=== PATIENT | male | born 2000 | race Caucasian/White ===

== ENCOUNTER 2023-09-22 22:36 | Emergency (ER) | payer MEDICAID ==
[~2023-09-22] VITALS: Ht 170.2 cm; Wt 90.0 kg
[2023-09-22 22:40] VITALS: BP 118/79; PULSE 75; RESP 20; TEMP 97.8
[2023-09-22] MEDS ORDERED: PREG300C PO (23:56)
== END 2023-09-23 00:03 | disposition home or self-care (01) ==
LOC: EMS 22:38
DX: M54.50 Low back pain, unspecified (principal); F17.210 Nicotine dependence, cigarettes, uncomplicated; Z76.0 Encounter for issue of repeat prescription
CPT/HCPCS: 99281; Z7502